=== PATIENT | female | born 1990 | race Caucasian/White ===

== ENCOUNTER 2020-11-02 15:01 | Emergency (ER) | payer OTHER, SELFPAY ==
[2020-11-02 15:12] VITALS: BP 132/77; PULSE 87; RESP 16; TEMP 36.9; O2SAT 100
--- NOTE | 2020-11-02 15:31 | ED.EYEPROB ---
HPI - Eye Problem General Chief complaint: Eye Problems Stated complaint: right eye pain Time Seen by Provider: 11/02/20 15:31 Source: patient and RN notes reviewed Mode of arrival: ambulatory Limitations: no limitations History of Present Illness HPI Narrative: 30 year old female presents to [facility] care with complaints of one week duration of right eye feeling achy, some swelling under right eye, with gunky drainage noted from right eye this morning. Patient does wear glasses and denies any change in vision from right eye, is 20/20 on acuity exam, patient has no vision to her left eye states lazy eye. Patient denies any sharp pain to her right eye, has not applied any drops to her right eye nor does she wear contact lens to right eye. Patient thought that it was allergies and has been taking Claritin. chief complaint: eye pain Onset (ago): week(s) (1) Location: right eye Related Data Patient tetanus UTD: Yes Allergies Allergy/AdvReac Type Severity Reaction Status Date / Time No Known Allergies Allergy Unknown Other Verified 02/05/19 10:19 Review of Systems Review of Systems: Narrative: CONSTITUTIONAL: Denies fever, chills, or sweats. EYES: Denies visual changes, positive redness, photophobia and drainage right eye ENT: Denies rhinorrhea, congestion, sore throat, or otalgia. CARDIOVASCULAR: Denies chest pain, palpitations, or edema. RESPIRATORY: Denies cough or dyspnea. GASTROINTESTINAL: Denies abdominal pain, nausea, vomiting, or diarrhea. GENITOURINARY: Denies dysuria or hematuria. SKIN: Denies rash or itching. MUSCULOSKELETAL: Denies back pain, joint pain, or myalgia. NEUROLOGIC: Denies headache, numbness, or weakness. PSYCHIATRIC: Denies anxiety or depression. All systems reviewed & are unremarkable except as noted in HPI and below PMFSH Past Medical History Medical History (Updated 11/04/20 @ 15:17 by Frances Centeno NP) Blindness of left eye induced hypertension Surgical History Surgical History (Updated 11/04/20 @ 15:29 by Frances Centeno NP) History of hip surgery impingement, arthroscopy of bilateral hips History of placement of ear tubes Family History Family History (Updated 11/02/20 @ 17:33 by Frances Centeno NP) Father Heart disease Acute myocardial infarction Other Family history of malignant neoplasm of breast Social History Social History (Updated 11/02/20 @ 17:34 by Frances Centeno NP) Smoking status: Never smoker Second hand tobacco smoke exposure: No Alcohol intake: never Substance use: never Living arrangements: with family Gender identity (if verbalized by the patient): Female Comments At time of signature, agree with nursing past medical, surgical, social and family history. There is no relevant family history pertinent to the presenting complaint Exam Narrative: Exam Narrative: GENERAL: Well-appearing, well-nourished, and in no acute distress. HEAD: Normocephalic, atraumatic. EYES: PERRLA and EOMI.swelling to right lower eyelid with redness of conjunctiva, light yellowish drainage from right eye reported none at present time, denies any sharp pain to right eye, is itchy and sensitive to light. ENT: Nares clear, no rhinorrhea or epistaxis. Mucous membranes moist.TM's normal with good light reflex, throat pink with no swelling, lesions, exudates or tonsil enlargement. NECK: Supple.no lymphadenopathy CHEST: Clear to auscultation. No respiratory distress. HEART: Regular rate and rhythm. No murmur heard. Normal peripheral pulses. ABDOMEN: Soft, nontender, nondistended, normal active bowel sounds. EXTREMITIES: Normal range of motion. No edema. SKIN: Warm, dry, no rash. NEURO: No focal deficits. Alert and oriented x3. Course Vital Signs Vital signs: Vital Signs Temperature 36.9 C 11/02/20 15:12 Pulse Rate 87 11/02/20 15:12 Respiratory Rate 16 11/02/20 15:12 Blood Pressure 132/77 11/02/20 15:12 Pulse Oximetry 100 11/02/20 15:12
== END 2020-11-02 15:51 | disposition home or self-care (01) ==
PROVIDERS: Emergency Provider Registered Nurse
DX: H10.9 Unspecified conjunctivitis (principal)
CPT/HCPCS: 99213; G0463

== ENCOUNTER 2023-07-29 08:18 | Emergency (ER) | payer OTHER, SELFPAY ==
[2023-07-29 08:26] VITALS: BP 126/65; PULSE 78; RESP 16; TEMP 37.1; O2SAT 99
--- NOTE | 2023-07-29 08:31 | ED.URI ---
HPI - URI/Sore Throat General Chief Complaint: Upper Respiratory Infection Stated Complaint: Sore Throat, Earache, Dizzy History of Present Illness HPI Narrative: 32 y/o female presented for c/o sore throat, bilateral ear pressure and runny nose. Onset 4 days. Reports feeling off balance at times, mostly when standing from seated position or fast head movements. Taking Tylenol. Pt is 12 weeks gestation. Denies cough, vomiting or fever. Related Data Home Medications Medication Instructions Recorded Confirmed No Home Medications 07/29/23 07/29/23 Allergies Allergy/AdvReac Type Severity Reaction Status Date / Time No Known Allergies Allergy Unknown Other Verified 07/29/23 08:29 Review of Systems Review of Systems: CONSTITUTIONAL: Denies body aches, fever, chills, or sweats. EYES: Denies visual changes, redness, or discharge. ENT: reports rhinorrhea, sore throat, otalgia. CARDIOVASCULAR: Denies chest pain, palpitations, or edema. RESPIRATORY: Denies dyspnea. GASTROINTESTINAL: Denies abdominal pain, nausea, vomiting, or diarrhea. SKIN: Denies rash, itching, or wounds. MUSCULOSKELETAL: Denies back pain, joint pain, or myalgia. NEUROLOGIC: Denies headache PMFSH Past Medical History Medical History Blindness of left eye induced hypertension Surgical History Surgical History History of hip surgery impingement, arthroscopy of bilateral hips History of placement of ear tubes Family History Family History Father Heart disease Acute myocardial infarction Other Family history of malignant neoplasm of breast Social History Social History Smoking status: Never smoker Second hand tobacco smoke exposure: No Alcohol intake: never Substance use: never Lack of Transportation: No Lack of Food: Never True Current Housing: I Have Housing Concerned About Future Housing: No Difficulty Paying Gas/Electric Bills: No Difficulty Paying for Meds: No Currently Unemployed: No Education: Bachelor's Degree Difficulty w/ Childcare or Family Care: No Living arrangements: with family Gender identity (if verbalized by the patient): Female Exam Narrative: GENERAL: well-appearing, no acute distress. EYES: conjunctivae clear ENT: Mucous membranes moist. TMs pearly becerra with normal light reflex bilaterally; no tragal tenderness. Oropharynx not erythematous without lesions. Tonsils not enlarged and without exudate. No drooling, no hoarseness, no trismus, uvula midline. No tripod positioning, hot potato voice, or soft palate swelling. NECK: Supple. No lymphadenopathy CHEST: Clear to auscultation, breath sounds equal. No respiratory distress, speaks in full sentences. HEART: Regular rate and rhythm. No murmur heard. SKIN: Warm, dry, no rash. NEURO: Alert and oriented x3. Course Course Emergency Course: Patient is aware of diagnosis, understands and agrees to treatment plan. Anticipatory guidance given. Patient agrees to follow-up as directed and is aware of reasons to seek care at the emergency department. Portions of this record may have been created with voice recognition software Level of Care: Express Care Visit Vital Signs Vital signs: Vital Signs Temperature 98.7 F 07/29/23 08:26 Pulse Rate 78 07/29/23 08:26 Respiratory Rate 16 07/29/23 08:26 Blood Pressure 126/65 07/29/23 08:26 Pulse Oximetry 99 07/29/23 08:26 Temperature 98.7 F 07/29/23 08:26 Pulse Rate 78 07/29/23 08:26 Respiratory Rate 16 07/29/23 08:26 Blood Pressure 126/65 07/29/23 08:26 Pulse Oximetry 99 07/29/23 08:26 MDM - URI/Sore Throat MDM Narrative Medical decision making narrative: neg strep result reviewed with pt. Ad
== END 2023-07-29 08:48 | disposition home or self-care (01) ==
PROVIDERS: Emergency Provider Nurse Practitioner Family; PCP Emergency Medicine
DX: O99.511 Diseases of the respiratory system complicating pregnancy, first trimester (principal); J06.9 Acute upper respiratory infection, unspecified; Z3A.12 12 weeks gestation of pregnancy
CPT/HCPCS: 87081; 87880; 99213; G0463